=== PATIENT | male | born 1990 | race Two or more races ===

== ENCOUNTER 2020-03-18 15:08 | Emergency (ER) | payer SELFPAY ==
[~2020-03-18] VITALS: Ht 170.2 cm; Wt 75.0 kg
[2020-03-18] MEDS ORDERED: LIDOCAINE 1%-EPI 1:100K, 20ML INFIL ONE (15:30)
[2020-03-18] MEDS ORDERED: DIPH,PERTUSS(ACELL),TET VAC/PF 0.5 ML IM-VACC ONE ×2 (15:30→16:04)
--- NOTE | 2020-03-18 15:48 | NUR ---
pt moved to room at this time from wall.
[2020-03-18] MEDS ORDERED: LIDOCAINE 1%-EPI 1:100K, 20ML ONE (16:04)
[2020-03-18] MEDS ORDERED: NEOSPORIN OINT. PKT 1 PACKET ONE (17:14)
[2020-03-18 17:32] VITALS: BP 106/58
== END 2020-03-18 18:13 | disposition home or self-care (01) ==
LOC: ED 18:00
DX: S06.0X1A Concussion with loss of consciousness of 30 minutes or less, initial encounter (principal); S01.81XA Laceration without foreign body of other part of head, initial encounter; Y08.89XA Assault by other specified means, initial encounter; Y93.89 Activity, other specified; Y92.488 Other paved roadways as the place of occurrence of the external cause; Y99.8 Other external cause status
CPT/HCPCS: 12054; 90471; 90715; 99284

== ENCOUNTER 2020-03-25 12:52 | Emergency (ER) | payer OTHER ==
[~2020-03-25] VITALS: Ht 170.2 cm; Wt 74.7 kg
[2020-03-25 12:58] VITALS: BP 120/72
--- NOTE | 2020-03-25 13:20 | NUR ---
NO ANSWER FROM LOBBY FOR PT FOR ROOM. [id number]
--- NOTE | 2020-03-25 14:45 | NUR ---
PT CALLED MULTIPLE TIMES BY RADIOLOGY. NOT IN LOBBY
--- NOTE | 2020-03-25 15:00 | NUR ---
NOT IN LOBBY
--- NOTE | 2020-03-25 15:34 | NUR ---
NOT IN LOBBY
== END 2020-03-25 15:46 | disposition left against medical advice (07) ==
LOC: ED 15:39
DX: Z48.02 Encounter for removal of sutures (principal); Z53.21 Procedure and treatment not carried out due to patient leaving prior to being seen by health care provider

== ENCOUNTER 2020-03-26 07:27 | Emergency (ER) | payer SELFPAY ==
[~2020-03-26] VITALS: Ht 170.2 cm; Wt 74.5 kg
[2020-03-26 07:31] VITALS: BP 126/77
--- NOTE | 2020-03-26 09:49 | NUR ---
MUTLIPLE SUTURES REMOVED. WET GAUZE IN PLACE TO HELP REMOVE TISSUE SURROUNDING REMAINING SUTURES AT THIS TIME
--- NOTE | 2020-03-26 10:37 | NUR ---
SUTURES REMOVED DISCHARGE GIVEN
== END 2020-03-26 10:38 | disposition home or self-care (01) ==
LOC: ED 09:06
DX: S01.112D Laceration without foreign body of left eyelid and periocular area, subsequent encounter (principal); X58.XXXD Exposure to other specified factors, subsequent encounter
CPT/HCPCS: 99281

== ENCOUNTER 2020-10-30 21:33 | Inpatient (IN) | payer OTHER ==
[~2020-10-30] VITALS: Ht 170.2 cm; Wt 83.5 kg
--- NOTE | 2020-10-30 21:35 | NUR ---
PT BIBA FROM [facility]IDENT[facility] FOR SWELLING ON RIGHT EYE, REPORTS SWELLING SINCE YESTERDAY WORSE TODAY. REDNESS AND SWELLING NOTED ON EYE, EYE IS SHUT CLOSED, PT UNABLE TO OPEN RIGHT EYE.
[2020-10-30] MEDS ORDERED: SODIUM CHLORIDE 0.9% 1,000ML IVBOLUS ONE (22:00)
[2020-10-30] MEDS ORDERED: MORPHINE SULFATE 4 MG/ML, 1ML IVPush PRN (22:00)
[2020-10-30] MEDS ORDERED: ONDANSETRON 2MG/ML, 2ML IVPush ONE (22:00)
[2020-10-30] MEDS ORDERED: MORPHINE SULFATE 4 MG/ML, 1ML ONE (22:06)
[2020-10-30] MEDS ORDERED: ONDANSETRON 2MG/ML, 2ML ONE (22:06)
[2020-10-30 22:17] LABS: BASOPHILS % (AUTO) 0 % (0-1); EOSINOPHILS % (AUTO) 11 % (1-7); HCT (SEDRATE) 44.8 % (39.2-51.8); LYMPHOCYTES % (AUTO) 12 % (22-44); MEAN CORPUSCULAR HGB CONC 35.9 g/dL (33.2-36.2); MEAN PLATELET VOLUME 8.6 fL (7.4-10.4); MONOCYTES % (AUTO) 6 % (2-9); NEUTROPHILS % (AUTO) 70 % (42-75); PLATELET COUNT 215 x10^3/uL (130-400); RED BLOOD COUNT 5.39 x10^6/uL (4.38-5.82); RED CELL DISTRIBUTION WIDTH 13.7 % (9.4-14.8)
[2020-10-30 22:27] LABS: ALBUMIN 3.9 g/dL (3.4-5.0); ANION GAP 6 mmol/L (5-15); CALCIUM 9.2 mg/dL (8.5-10.1); CHLORIDE 106 mmol/L (98-107)
[2020-10-30] MEDS ORDERED: VANCOMYCIN PER PHARMACY MC ONE (22:30)
[2020-10-30] MEDS ORDERED: VANCOMYCIN 1,800 MG in SODIUM CHLORIDE 0.9% 250 ML IV ONE (22:30)
[2020-10-30] MEDS ORDERED: AMPICILLIN/SULBACTAM 3 GM in SODIUM CHLORIDE 0.9% 100 ML IV ONE (22:30)
[2020-10-30] MEDS ORDERED: ACETAMINOPHEN 325 MG TABLET PO ONE (22:30)
--- NOTE | 2020-10-30 22:48 | NUR ---
pt transported to ct.
--- NOTE | 2020-10-30 22:58 | NUR ---
Report to [facility].
[2020-10-30] MEDS ORDERED: OMNIPAQUE 350 MG/ML, 75ML BOTTLE ONE (23:22)
--- NOTE | 2020-10-30 23:30 | NUR ---
Blood cultures x2 drawn, IV abx started. Pt tolerating well, vss and will cont to monitor.
--- NOTE | 2020-10-31 00:34 | NUR ---
IV abx infusing. [place] at bedside. VSS and will cont to monitor.
[2020-10-31] MEDS ORDERED: LACTATED RINGERS 1,000 ML IV SCH (02:00)
[2020-10-31] MEDS ORDERED: ONDANSETRON 2MG/ML, 2ML IVPush PRN (02:00)
[2020-10-31] MEDS ORDERED: DOCUSATE 100 MG CAPSULE PO PRN (02:00)
[2020-10-31] MEDS ORDERED: ENALAPRILAT 1.25 MG/ML, 2ML IVPush PRN (02:00)
[2020-10-31] MEDS ORDERED: ZOLPIDEM 5MG TABLET PO PRN (02:00)
[2020-10-31] MEDS ORDERED: METHOCARBAMOL 500 MG TABLET PO PRN (02:00)
[2020-10-31] MEDS ORDERED: GUAIFENESIN/DM 200-20MG, 10ML UDC PO PRN (02:00)
[2020-10-31 02:19] VITALS: BP 114/74
[2020-10-31] MEDS: CLINDAMYCIN PMX 600MG/50ML 50 ML IV SCH ×3 (02:41→17:52)
[2020-10-31 06:33] VITALS: BP 90/53
[2020-10-31] MEDS: CEFDINIR 300 MG CAPSULE PO SCH ×2 (07:47→20:38)
[2020-10-31] MEDS: ACETAMINOPHEN 325 MG TABLET PO PRN (07:47)
[2020-10-31 14:48] VITALS: BP 106/71
[2020-10-31 15:41] LABS: MICROSCOPIC NOT IND
[2020-10-31 20:24] VITALS: BP 101/68
[2020-11-01 01:32] VITALS: BP 109/70
[2020-11-01] MEDS: CLINDAMYCIN PMX 600MG/50ML 50 ML IV SCH ×2 (01:36→08:56)
[2020-11-01 06:17] LABS: BASOPHILS % (AUTO) 0 % (0-1); EOSINOPHILS % (AUTO) 12 % (1-7); LYMPHOCYTES % (AUTO) 21 % (22-44); MEAN CORPUSCULAR HGB CONC 35.8 g/dL (33.2-36.2); MEAN PLATELET VOLUME 8.2 fL (7.4-10.4); MONOCYTES % (AUTO) 8 % (2-9); NEUTROPHILS % (AUTO) 60 % (42-75); PLATELET COUNT 199 x10^3/uL (130-400); RED BLOOD COUNT 4.93 x10^6/uL (4.38-5.82); RED CELL DISTRIBUTION WIDTH 13.5 % (9.4-14.8)
[2020-11-01 06:28] LABS: ANION GAP 4 mmol/L (5-15); CALCIUM 8.9 mg/dL (8.5-10.1); CHLORIDE 107 mmol/L (98-107); CREATININE 0.93 mg/dL (0.7-1.3)
[2020-11-01 07:52] VITALS: BP 107/72
[2020-11-01] MEDS: CEFDINIR 300 MG CAPSULE PO SCH (08:56)
[2020-11-01] MEDS ORDERED: VANCOMYCIN PER PHARMACY MC PRN (15:00)
[2020-11-01] MEDS ORDERED: VANCOMYCIN PMX 1GM/200ML 200 ML IV ONE (15:00)
[2020-11-01] MEDS ORDERED: PHARMACOKINETIC MONITORING MC PRN (15:30)
[2020-11-01] MEDS ORDERED: VANCOMYCIN 2,200 MG in SODIUM CHLORIDE 0.9% 500 ML IV ONE (15:30)
[2020-11-01] MEDS ORDERED: PHARMACOKINETIC CONSULTATION MC ONE (15:30)
[2020-11-01] MEDS: ENOXAPARIN 40 MG/0.4 ML SQ SCH (15:42)
[2020-11-01] MEDS: AMPICILLIN/SULBACTAM 3 GM in SODIUM CHLORIDE 0.9% 100 ML IV SCH ×2 (15:42→21:09)
[2020-11-01 15:49] VITALS: BP 108/78
[2020-11-01 19:18] VITALS: BP 111/72
[2020-11-02 02:23] VITALS: BP 102/66
[2020-11-02] MEDS: AMPICILLIN/SULBACTAM 3 GM in SODIUM CHLORIDE 0.9% 100 ML IV SCH ×4 (03:13→20:47)
[2020-11-02] MEDS: VANCOMYCIN 1,700 MG in SODIUM CHLORIDE 0.9% 250 ML IV SCH ×2 (04:10→16:15)
[2020-11-02 04:59] LABS: ANION GAP 3 mmol/L (5-15); CALCIUM 8.8 mg/dL (8.5-10.1); CHLORIDE 106 mmol/L (98-107); CREATININE 0.86 mg/dL (0.7-1.3)
[2020-11-02 05:07] LABS: BASOPHILS % (AUTO) 1 % (0-1); EOSINOPHILS % (AUTO) 22 % (1-7); LYMPHOCYTES % (AUTO) 26 % (22-44); MEAN CORPUSCULAR HEMOGLOBIN 30.1 pg (27.5-34.5); MEAN CORPUSCULAR HGB CONC 35.9 g/dL (33.2-36.2); MEAN PLATELET VOLUME 8.7 fL (7.4-10.4); MONOCYTES % (AUTO) 7 % (2-9); NEUTROPHILS % (AUTO) 44 % (42-75); PLATELET COUNT 230 x10^3/uL (130-400); RED BLOOD COUNT 5.09 x10^6/uL (4.38-5.82); RED CELL DISTRIBUTION WIDTH 13.8 % (9.4-14.8)
[2020-11-02 06:25] VITALS: BP 103/65
[2020-11-02 11:27] LABS: MICROSCOPIC NOT IND
[2020-11-02 14:24] VITALS: BP 102/70
[2020-11-02] MEDS: ENOXAPARIN 40 MG/0.4 ML SQ SCH (15:13)
[2020-11-02 20:05] VITALS: BP 113/73
[2020-11-03 00:25] VITALS: BP 109/66
[2020-11-03] MEDS: AMPICILLIN/SULBACTAM 3 GM in SODIUM CHLORIDE 0.9% 100 ML IV SCH ×4 (02:53→21:01)
[2020-11-03 03:44] LABS: ANION GAP 5 mmol/L (5-15); CALCIUM 9.2 mg/dL (8.5-10.1); CHLORIDE 107 mmol/L (98-107); CREATININE 0.89 mg/dL (0.7-1.3)
[2020-11-03 03:46] LABS: VANCOMYCIN,TROUGH 16.5 mcg/mL (5.0-10.0)
[2020-11-03] MEDS: VANCOMYCIN 1,700 MG in SODIUM CHLORIDE 0.9% 250 ML IV SCH (04:19)
[2020-11-03 05:01] LABS: BASOPHILS % (AUTO) 1 % (0-1); EOSINOPHILS % (AUTO) 25 % (1-7); LYMPHOCYTES % (AUTO) 27 % (22-44); MEAN CORPUSCULAR HEMOGLOBIN 30.1 pg (27.5-34.5); MEAN CORPUSCULAR HGB CONC 35.9 g/dL (33.2-36.2); MEAN PLATELET VOLUME 8.6 fL (7.4-10.4); MONOCYTES % (AUTO) 6 % (2-9); NEUTROPHILS % (AUTO) 41 % (42-75); PLATELET COUNT 267 x10^3/uL (130-400); RED BLOOD COUNT 5.19 x10^6/uL (4.38-5.82); RED CELL DISTRIBUTION WIDTH 13.4 % (9.4-14.8)
[2020-11-03 06:37] VITALS: BP 116/74
[2020-11-03 13:49] VITALS: BP 109/70
[2020-11-03] MEDS: ENOXAPARIN 40 MG/0.4 ML SQ SCH (15:10)
[2020-11-03] MEDS: ACETAMINOPHEN 325 MG TABLET PO PRN (15:10)
[2020-11-03] MEDS: VANCOMYCIN 1,900 MG in SODIUM CHLORIDE 0.9% 250 ML IV SCH (16:03)
[2020-11-03 19:47] VITALS: BP 111/72
[2020-11-04 01:15] VITALS: BP 109/70
[2020-11-04] MEDS: AMPICILLIN/SULBACTAM 3 GM in SODIUM CHLORIDE 0.9% 100 ML IV SCH ×2 (02:51→08:19)
[2020-11-04] MEDS: VANCOMYCIN 1,900 MG in SODIUM CHLORIDE 0.9% 250 ML IV SCH (04:17)
[2020-11-04 06:35] VITALS: BP 117/73
[2020-11-04] MEDS ORDERED: IBUP-1221 PO (11:19)
[2020-11-04] MEDS ORDERED: AMOX1TAB64 PO (11:19)
== END 2020-11-04 14:25 | DRG 872 ==
LOC: ED 10-31 01:35 → EDIP 10-31 01:47 → 3N 10-31 02:16
PROVIDERS: ADMIT Internal Medicine; ATTEND Internal Medicine
DX: A41.9 Sepsis, unspecified organism (principal); L03.213 Periorbital cellulitis; F12.90 Cannabis use, unspecified, uncomplicated; R56.9 Unspecified convulsions; Z82.49 Family history of ischemic heart disease and other diseases of the circulatory system; Z83.3 Family history of diabetes mellitus
CPT/HCPCS: 36415; 70482; 80048; 80202; 81003; 82040; 83735; 84100; 85025; 85651; 86140; 87040; 96361; 96365; 96375; G0378; J0295; J1650; J2405; J3370; Q9967; J2270; J7030; J7040; J7050; J7120